=== PATIENT | male | born 1995 | race Caucasian/White ===

== ENCOUNTER 2017-07-24 21:15 | Emergency (ER) | payer MEDICAID, BC, SELFPAY, OTHER | END 2017-07-24 21:58 | disposition home or self-care (01) | LOC: M ED 21:15 | DX: R10.9 Unspecified abdominal pain (principal); G43.909 Migraine, unspecified, not intractable, without status migrainosus; F32.9 Major depressive disorder, single episode, unspecified | CPT/HCPCS: 99282 ==

== ENCOUNTER 2017-11-10 14:34 | Emergency (ER) | payer BC, OTHER, MEDICAID | END 2017-11-10 16:35 | disposition home or self-care (01) | LOC: M ED 14:34 | DX: L72.3 Sebaceous cyst (principal); G43.909 Migraine, unspecified, not intractable, without status migrainosus; F32.9 Major depressive disorder, single episode, unspecified | CPT/HCPCS: 76705 ==